=== PATIENT | female | born 1945 | race Caucasian/White ===

== ENCOUNTER → 2025-04-21 | Outpatient (CLI) | payer MEDICARE, BC ==
--- NOTE | 2025-04-28 12:20 | MR ---
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 Stud y is performed within 24 hours of arrival to the hospital.Multiplanar, multiecho imaging on a 3.0 Nancy la magnet is performed through the knee. IV Contrast: mL (None, if empty) FINDINGS: The craniovertebral junction is normal. The pituitary is normal. Diffusion-weighted imaging is performed. No abnormal hyperintensity is present to suggest an acute i ntracranial infarct or acute ischemic change. There are multiple scattered punctate areas of hyperintensity on T2 and Inversion Recovery weighted s equences which are non-specific but can be related to microvascular ischemic changes. Within the left medial inferior cerebellum there is hyperintensity on T2 and inversion Carby-weighted sequences which appears hypointense on T1-weighted sequences. Findings appear stable from the compar alycia study. Measurements appear stable. Ventricles and sulci are appropriate for the patient age. Study is without intravenous contrast. IMPRESSION: 1. Stable T2 hyperintensity left cerebellum unchanged from comparison study. 2. Multiple scattered punctate white matter changes likely on the basis of chronic white matter ische monalisa change. [facility], , 04/28/2025 12:18 PM
== END | disposition home or self-care (01) ==
LOC: RADMRIMAIN 14:01
PROVIDERS: ATTEND Internal Medicine
DX: C64.9 Malignant neoplasm of unspecified kidney, except renal pelvis (principal); Z85.850 Personal history of malignant neoplasm of thyroid; Z85.841 Personal history of malignant neoplasm of brain
CPT/HCPCS: 70551

== ENCOUNTER → 2025-04-23 | Outpatient (CLI) | payer MEDICARE, BC ==
--- NOTE | 2025-04-29 10:19 | CT ---
EXAMINATION TYPE: CT ChestAbdPelvis wo con DATE OF EXAM: 04/23/2025 12:20 PM COMPARISON: 01/13/2025r CLINICAL INDICATION: Female, 79 years old with history of C64.9 renal cell ca, RENAL CELL CA TECHNIQUE: CT ChestAbdPelvis wo con , with sagittal coronal reformats. If MIP/3-D images were created , there are created on a separate workstation. Contrast used: mL of , (none if empty) Oral contrast used: without Oral Contrast (none if empty) CT DLP: 768.8 mGycm, Automated exposure control for dose reduction was used. FINDINGS: CT CHEST: Portion of the thyroid visualized is normal. There is a 1.4 cm nodule medial right lung base has enlarged from 1.0 cm. A 2.1 cm density at the lef t base has enlarged from 1.7 cm. There is a 1.5 cm pretracheal lymph node. This was present previously. This could be a pericardial re flection, normal variant. Calcifications are in the periaortic and left aortopulmonic window region. Mild coronary artery calcifications present. The ascending aorta diameter at the level of the main pulmonary artery is 3.6 cm. The main pulmonary artery diameter at the bifurcation is 2.[address] ABDOMEN: Liver: Normal Spleen: Normal Pancreas: Normal Adrenal glands: The adrenal glands are normal. Gallbladder: Normal Kidneys: Bilateral kidneys are heterogenous with hyperdense areas present. Multiple scattered calcifi cations are present. Postsurgical clips are within the inferior right kidney. A mass measuring 5.4 cm at the inferior pole right kidney is present this appears stable. Additional underlying renal mass i s may be present. Appearance is stable from the comparison of 01/13/2025. Aorta: Vascular calcification is within the aorta. Inferior vena cava: Normal. CT PELVIS: Loops of bowel within the abdomen and pelvis are normal. This study is without oral contrast mate rial in bowel evaluation. Appendix: Not identified. No dilated tubular structure or inflammatory changes evident. Urinary bladder: Normal. Genitourinary structures: Uterus is absent. Ovaries are not identified. Osseous structures: No suspicious lytic or sclerotic lesions. IMPRESSION: 1. Heterogenous appearance to the bilateral kidneys which is stable from the comparison. Suspicious m ass likely at the inferior pole right kidney. Additional masses however may be present. No interval g rowth is identified. 2. Enlarging bibasilar lung nodules. [facility], , 04/29/2025 10:16 AM
== END | disposition home or self-care (01) ==
LOC: RADCTMAIN 11:50
PROVIDERS: ATTEND Internal Medicine
DX: C64.9 Malignant neoplasm of unspecified kidney, except renal pelvis (principal); M12.9 Arthropathy, unspecified; R91.8 Other nonspecific abnormal finding of lung field
CPT/HCPCS: 71250; 74176

== ENCOUNTER → 2025-06-19 | Outpatient (CLI) | payer MEDICARE, BC ==
--- NOTE | 2025-06-19 15:38 | US ---
EXAMINATION TYPE: US kidneys/renal and bladder DATE OF EXAM: 06/19/2025 COMPARISON: CT 04/23/2025 CLINICAL INDICATION: Female, 79 years old with history of N18.32 CKD STAGE 3B; Renal cell carcinoma d iagnosis 13 years ago, mets to brain about 3 years ago with radiation treatment and partial bilateral nephrectomies; cancer has been stable for 21 months TECHNIQUE: Grayscale imaging of the bilateral kidneys and urinary bladder: FINDINGS: EXAM MEASUREMENTS: Right Kidney: 12.9 x 6.1 x 5.9 cm Left Kidney: 11.7 x 6.6 x 5.6 cm Post Void Residual Volume: NA mL Right Kidney: Heterogenous area lower pole = 6.8 x 4.9 x 6.5 cm bilateral indeterminant renal lesion s. Left Kidney: No hydronephrosis or nephrolithiasis. Bilateral indeterminate renal lesions by CT scan a re not as well-seen by ultrasound. Defer to CT finding. Bladder: wnl Bilateral Jets seen: No Normal Post Void Residual: NA IMPRESSION: Heterogeneous area lower pole right kidney measuring 6.8 cm. Appears to correspond to a complex mass in the lower pole the right kidney by previous CT scan. Additional bilateral renal lesions noted by p rior CT scan including hyperdense lesions are not as well-seen by ultrasound. Recommend follow-up CT scan. [facility], , 06/19/2025 3:36 PM
== END | disposition home or self-care (01) ==
LOC: RADUSWWP 13:44
PROVIDERS: ATTEND Internal Medicine
DX: N18.32 Chronic kidney disease, stage 3b (principal)
CPT/HCPCS: 76770